=== PATIENT | male | born 1980 | race Caucasian/White ===

== ENCOUNTER 2016-09-25 19:15 | Inpatient (IN) | payer OTHER ==
[~2016-09-25] VITALS: Ht 154.9 cm; Wt 93.4 kg
--- NOTE | 2016-09-25 20:03 | NUR ---
PT IN ED FOR CO INTERMITTENT ABD PAIN IN RUQ X4 DAYS. PT DENIES N/V/D/C; DENIES PAIN UPON URINATION, AND RADIATING PAIN. PT AAO4, RESP EVEN AND UNLABORED, NAD NOTED AT THIS TIME
--- NOTE | 2016-09-25 20:10 | NUR ---
DR VALENZUELA AT BEDSIDE FOR MSE
[2016-09-25 20:28] LABS: BASOPHIL % 0.4 % (0-2); PLATELET COUNT 217 x10^3mcL (130-400)
[2016-09-25 20:31] LABS: RED CELL DISTRIBUTION WIDTH 15.1 % (11.5-14.5)
[2016-09-25 20:38] LABS: microscopic required? YES; urine erythrocyte NEGATIVE (NEGATIVE)
--- NOTE | 2016-09-25 20:38 | NUR ---
US IN PROGRESS
[2016-09-25 20:40] LABS: CALCIUM 8.7 mg/dL (8.5-10.1); CARBON DIOXIDE 27.7 mmol/L (21-32); CHLORIDE SERUM 110 mmol/L (98-107); CREATININE SERUM 1.1 mg/dL (0.7-1.3); GFR1 > 60 mL/min; GLUCOSE SERUM 90 mg/dL (74-106); POTASSIUM SERUM 4.5 mmol/L (3.5-5.1); SODIUM SERUM 145 mmol/L (136-145)
[2016-09-25 20:44] LABS: ALBUMIN 3.8 g/dL (3.4-5.0); ALKALINE PHOSPHATASE 85 U/L (46-116); ALT/SGPT 108 U/L (16-63); AST/SGOT 58 U/L (15-37); BILIRUBIN TOTAL 0.68 mg/dL (0.20-1.00); LIPASE 123 IU/L (73-393); TOTAL PROTEIN, SERUM 6.7 g/dL (6.4-8.2)
[2016-09-25 20:58] LABS: AMPHETAMINE QUAL UR NONE DETECTED (NEG <=1000)
--- NOTE | 2016-09-25 21:30 | NUR ---
PT DENIES PAIN AT THIS TIME; ONLY REPORTS PAIN ON PALP. PT AAO4, RESP EVEN AND UNLABORED, NAD NOTED AT THIS TIME.
--- NOTE | 2016-09-25 21:34 | NUR ---
DR VALENZUELA AT BEDSIDE TO DISCUSS RESULTS
[2016-09-25] MEDS ORDERED: SIMVASTATIN40 M1 PO (21:47)
[2016-09-25] MEDS ORDERED: ASPIR 8181 MG PO (21:47)
[2016-09-25] MEDS ORDERED: CARVEDILOL3.125 M1 PO (21:47)
--- NOTE | 2016-09-25 21:57 | NUR ---
REPORT GIVEN TO MEAGHAN/HALLIE TO ASSUME CARE OF PT
[2016-09-25 22:30] LABS: MAGNESIUM 1.9 mg/dL (1.8-2.4); PHOSPHOROUS 3.8 mg/dL (2.5-4.9)
[2016-09-25 22:32] LABS: CHOLESTEROL/HDL RATIO 2.6
[2016-09-25 22:39] LABS: T3 TOTAL 1.17 ng/mL
[2016-09-25 22:41] LABS: FREE T4 0.92 ng/dL (0.76-1.46); FREE THYROXINE INDEX 2.2 ug/dL (1.4-4.5); T4(THYROXINE) 6.4 ug/dL (4.7-13.3)
--- NOTE | 2016-09-25 22:45 | NUR ---
REC'D AOX4, DENIES DIZZINES MCKIN[place]. ATTACHED TELE 9, NSR. DENIES CHEST PAIN. C/O ABD PAIN TO TOUCH. FRIEND AT THE BEDSIDE. ON RA, NO SOB NOTED. AMBULATORY WITH STEADY GAIT. DR. GILES IN TO SEE PT. ORIENTED TO ROOM AND SURROUNDINGS CALL LIGHT WITHIN REACH, PROVIDED REPORT TO MEAGHAN FOR CONTINUITY OF CARE.
[2016-09-25 22:56] VITALS: BP 161/64
--- NOTE | 2016-09-25 23:05 | NUR ---
DR. GILES AWARE OF ADMITTING BP 161/64 MMHG,HR 89.NEW ORDERS GIVEN AND WILL CARRY OUT.
[2016-09-26 04:14] LABS: BASOPHIL % 0.4 % (0-2); PLATELET COUNT 183 x10^3mcL (130-400)
[2016-09-26 04:18] LABS: RED CELL DISTRIBUTION WIDTH 14.7 % (11.5-14.5)
[2016-09-26 04:41] LABS: CARBON DIOXIDE 25.8 mmol/L (21-32); CHLORIDE SERUM 113 mmol/L (98-107); CREATININE SERUM 1.1 mg/dL (0.7-1.3); GFR1 > 60 mL/min; GLUCOSE SERUM 92 mg/dL (74-106); MAGNESIUM 1.9 mg/dL (1.8-2.4); PHOSPHOROUS 3.8 mg/dL (2.5-4.9); POTASSIUM SERUM 4.3 mmol/L (3.5-5.1); SODIUM SERUM 146 mmol/L (136-145)
--- NOTE | 2016-09-26 04:58 | NUR ---
PT SLEPT WELL.DENIES ABDOMINAL PAIN SINCE ADMISSION.NPO AT THIS TIME ORDERED.ALL NEEDS MET.WILL CONTINUE TO MONITOR.
[2016-09-26 06:09] VITALS: BP 144/73
--- NOTE | 2016-09-26 08:00 | NUR ---
AWAKE AND ALERT. TEMP 97.4. TELE #9 SINUS RHYTHM. DENIES CHEST DISCOMFORT. RESP 18 EVEN. BREATH SOUNDS CLEAR. NO COUGH OR SOB. PULSE OX 97% RA. ABD ROUNDED BUT SOFT, BOWEL TONES PRESENT. REPORTS "PAIN IS BETTER TO RIGHT SIDE OF MY STOMACH NOW 1 OR 2/10." LBM=5-6-17. VOIDING QS. NO EDEMA. PULSES PRESENT. SCD IN PLACE. IV PATENT LAC INFUSING NORMAL SALINE 150CC/HR. REMAINS NPO EXCEPT MEDS. AWAITING CONSULT WITH DR SANDERSON.
--- NOTE | 2016-09-26 08:55 | NUR ---
DR CAPELLAN AND MEDICAL TEAM IN ON ROUNDS. CHARGE NURSE PRESENT. DISCUSSED PLAN OF CARE. TO KEEP NPO UNTIL EVAL BY DR SANDERSON.
[2016-09-26 09:30] VITALS: BP 151/63
--- NOTE | 2016-09-26 10:00 | NUR ---
EKG TAKEN. HB=843/63. AM BP MEDS GIVEN. REVIEWED HOME MEDS VS DR ORDERED MEDS HERE. ACTIONS AND SIDE EFFECTS AND SCHEDULING REVIEWED. VERBALIZED UNDERSTANDING.
[2016-09-26 11:53] VITALS: BP 151/63
[2016-09-26] MEDS ORDERED: MOT800 PO (11:58)
[2016-09-26] MEDS ORDERED: ZESTRIL5 MG PO (12:05)
--- NOTE | 2016-09-26 12:20 | NUR ---
SPOKE WITH DR CASTRO. UPDATED WITH TROPONIN LEVEL 0.95 AND DISCHARGE PLAN. TO ADVANCE PT TO REGULAR DIET. MAY DISCHARGE HOME, DISCHARGE INSTRUCTIONS COMPLETED.
--- NOTE | 2016-09-26 14:00 | NUR ---
PT TOLERATED REGULAR DIET WELL. NO C/O ABD DISCOMFORT. IV REMOVED CATH TIP INTACT. TELE REMOVED AND RETURNED TO TELE UNIT. DC INSTRUCTIONS REVIEWED. RX ELECTRONICALLY SUBMITTED TO [facility] IN [place]. PT TO SEE PCP DR YANG ON WEDNESDAY ALREADY HAD SCHEDULED APPT FOR 1100. DC TO PRIVATE CAR WITH BELONGINGS AT THIS TIME.
== END 2016-09-26 14:14 | disposition home or self-care (01) ==
LOC: ED 19:15 → DU 21:43
PROVIDERS: Emergency Medicine; ADMIT Family Medicine
DX: K81.0 Acute cholecystitis (principal); N17.0 Acute kidney failure with tubular necrosis; K21.9 Gastro-esophageal reflux disease without esophagitis; I16.0 Hypertensive urgency; R01.1 Cardiac murmur, unspecified; E66.9 Obesity, unspecified; Z68.38 Body mass index [BMI] 38.0-38.9, adult
CPT/HCPCS: 80307; 83880; 84439; G0480; J1885; J7030; Q0092